=== PATIENT | female | born 1985 | race Caucasian/White ===

== ENCOUNTER 2017-08-18 14:56 | Observation (INO) ==
[2017-08-18] MEDS ORDERED: PANTOPRAZOLE 40 MG VIAL IV STA (16:53)
[2017-08-18] MEDS ORDERED: DICYCLOMINE 20 MG/2 ML AMP IM ONE (16:53)
[2017-08-18] MEDS ORDERED: ONDANSETRON 4 MG/2 ML VIAL IV STA ×2 (16:53→17:32)
[2017-08-18] MEDS ORDERED: SODIUM CHLORIDE 0.9% 1,000 ML IV STA (16:53)
[2017-08-18] MEDS ORDERED: metroNIDAZOLE 500 MG TABLET PO STA (16:53)
[2017-08-18 17:28] LABS: Basophils % 0.4 % (0.0-0.8); Eosinophils # 0.1 10*3/uL (0.0-0.87); Eosinophils % 0.5 % (0.00-10.9); Hemoglobin 15.7 GM/DL (12.0-16.0); Immature Granulocytes % 0.6 %; Immature Granulocytes Absolute 0.06 #; Lymphocytes # 1.8 10*3/uL (1.4-4.0); Lymphocytes % 17.2 % (21.3-54.2); Mean Corpuscular HGB Conc 34.9 GM/DL (32-36); Mean Corpuscular Hemoglobin 31 PG (27-34); Mean Corpuscular Volume 88.4 FL (87-102); Mean Platelet Volume 10.6 FL (9.6-12.0); Monocytes # 0.6 10*3/uL (0.11-0.8); Monocytes % 6.1 % (1.7-12.7); Neutrophils # 7.9 10*3/uL (1.4-7.4); Neutrophils % 75.2 % (38.7-73.9); Platelet Count 272 T/CUMM (130-400); Red Blood Count 5.09 MC/CUMM (3.8-5.5); Red Cell Distribution Width 12.2 % (9.3-17.3); White Blood Count 10.5 T/CUMM (4-12)
[2017-08-18 17:58] LABS: Albumin 3.7 G/DL (3.4-5.0); Bilirubin,Total 0.9 MG/DL (0.2-1.0); Calcium 8.8 MG/DL (8.5-10.1); Osmolality,Calculated 281.3 MOS/KG (273-304); Potassium 3.2 MMOL/L (3.5-5.1)
[2017-08-18 20:24] LABS: Apearance,Urine Slightly Hazy (Clear); Bilirubin,Urine Negative (Negative); Blood, Urine Negative (Negative); Glucose,Urine (UA) Negative (Negative); Ketones,Urine Negative (Negative); Mucus,Urine Occasional /LPF (Occasional); Nitrite,Urine Negative (Negative); Protein,Urine Negative; RBC,Urine 3 /HPF (0-4); Squamous Epithelial Cell,Urine Few /HPF (0-10); Urine Color Yellow (Yellow); Urine Specific Gravity 1.057 (1.001-1.035); Urine Urobilinogen < 2.0 EU/DL (0.2-1.0); WBC,Urine 10 /HPF (0-6)
[2017-08-19] MEDS ORDERED: ACETAMINOPHEN 325 MG TABLET PO PRN (01:07)
[2017-08-19] MEDS ORDERED: PROMETHAZINE 25 MG TABLET PO PRN (01:07)
[2017-08-19] MEDS ORDERED: ONDANSETRON 4 MG/2 ML VIAL IV PRN (01:07)
[2017-08-19] MEDS ORDERED: MORPHINE 4 MG/1 ML VIAL IV PRN (01:07)
[2017-08-19] MEDS ORDERED: PREGABALIN 75 MG CAPSULE PO SCH (01:07)
[2017-08-19] MEDS: PANTOPRAZOLE 40 MG VIAL IV SCH ×3 (02:00→20:05)
[2017-08-19] MEDS: metroNIDAZOLE INJ 500 MG in PREMIX 1 EACH IV SCH ×3 (02:15→17:31)
[2017-08-19] MEDS: POTASSIUM CHLORIDE INJ 40 MEQ in SODIUM CHLORIDE 0.45% 1,000 ML IV SCH ×3 (02:20→21:48)
[2017-08-19] MEDS: CIPROFLOXACIN INJ 400 MG in PREMIX 1 EACH IV SCH ×2 (04:40→17:32)
[2017-08-19] MEDS: PREGABALIN 75 MG CAPSULE PO SCH ×2 (05:05→20:05)
[2017-08-19 07:18] LABS: Basophils % 0.6 % (0.0-0.8); Eosinophils # 0.1 10*3/uL (0.0-0.87); Eosinophils % 0.9 % (0.00-10.9); Hematocrit 36.4 VOL% (35.7-47.0); Immature Granulocytes % 0.3 %; Immature Granulocytes Absolute 0.02 #; Lymphocytes # 1.9 10*3/uL (1.4-4.0); Lymphocytes % 29.1 % (21.3-54.2); Mean Corpuscular HGB Conc 35.7 GM/DL (32-36); Mean Corpuscular Hemoglobin 31 PG (27-34); Mean Corpuscular Volume 86.1 FL (87-102); Monocytes # 0.5 10*3/uL (0.11-0.8); Monocytes % 8.2 % (1.7-12.7); Neutrophils # 3.9 10*3/uL (1.4-7.4); Neutrophils % 60.9 % (38.7-73.9); Platelet Count 254 T/CUMM (130-400); Red Blood Count 4.23 MC/CUMM (3.8-5.5); Red Cell Distribution Width 12.2 % (9.3-17.3); White Blood Count 6.4 T/CUMM (4-12)
[2017-08-19 08:08] LABS: Alanine Aminotransferase 20 U/L (13-56); Albumin 3.1 G/DL (3.4-5.0); Alkaline Phosphatase 72 U/L (45-117); Aspartate Amino Transferase 19 U/L (0-37); Bilirubin,Total < 0.39 MG/DL (0.2-1.0); Blood Urea Nitrogen 11 MG/DL (7-18); Calcium 8.3 MG/DL (8.5-10.1); Glucose 91 MG/DL (74-106); Potassium 3.3 MMOL/L (3.5-5.1); Sodium 143 MMOL/L (136-145); Thyroid Stimulating Hormone 0.008 uIU/ml (0.358-3.74); Total Protein 6.1 G/DL (6.4-8.3)
[2017-08-19] MEDS ORDERED: PROMETHAZINE 25 MG/1 ML VIAL IM PRN (08:15)
[2017-08-19] MEDS: LEVOTHYROXINE 175 MCG TABLET PO SCH (08:50)
[2017-08-19] MEDS: SUCRALFATE 1 GM/10 ML UDCUP PO SCH ×4 (08:57→20:05)
[2017-08-19] MEDS: POTASSIUM CHLORIDE 20 MEQ TABLET PO SCH ×3 (08:57→17:31)
[2017-08-19] MEDS: traMADol 50 MG TABLET PO PRN (09:14)
[2017-08-19] MEDS: TOPIRAMATE 25 MG TABLET PO SCH ×2 (11:55→20:05)
[2017-08-20] MEDS: metroNIDAZOLE INJ 500 MG in PREMIX 1 EACH IV SCH ×2 (00:40→08:40)
[2017-08-20] MEDS: traMADol 50 MG TABLET PO PRN (00:43)
[2017-08-20 04:01] LABS: Basophils # 0.1 10*3/uL (0.0-0.2); Basophils % 0.7 % (0.0-0.8); Eosinophils # 0.2 10*3/uL (0.0-0.87); Eosinophils % 2.3 % (0.00-10.9); Hematocrit 37.6 VOL% (35.7-47.0); Hemoglobin 12.9 GM/DL (12.0-16.0); Immature Granulocytes % 0.3 %; Immature Granulocytes Absolute 0.02 #; Lymphocytes # 3.5 10*3/uL (1.4-4.0); Lymphocytes % 48.2 % (21.3-54.2); Mean Corpuscular HGB Conc 34.3 GM/DL (32-36); Mean Corpuscular Hemoglobin 31 PG (27-34); Mean Corpuscular Volume 89.7 FL (87-102); Mean Platelet Volume 11.2 FL (9.6-12.0); Monocytes # 0.7 10*3/uL (0.11-0.8); Monocytes % 9.1 % (1.7-12.7); Neutrophils # 2.9 10*3/uL (1.4-7.4); Neutrophils % 39.4 % (38.7-73.9); Platelet Count 260 T/CUMM (130-400); Red Blood Count 4.19 MC/CUMM (3.8-5.5); Red Cell Distribution Width 12.2 % (9.3-17.3); White Blood Count 7.2 T/CUMM (4-12)
[2017-08-20] MEDS: CIPROFLOXACIN INJ 400 MG in PREMIX 1 EACH IV SCH (04:02)
[2017-08-20] MEDS: POTASSIUM CHLORIDE INJ 40 MEQ in SODIUM CHLORIDE 0.45% 1,000 ML IV SCH (04:05)
[2017-08-20 04:23] LABS: Calcium 9.2 MG/DL (8.5-10.1); Osmolality,Calculated 283.8 MOS/KG (273-304); Potassium 4.5 MMOL/L (3.5-5.1)
[2017-08-20] MEDS: LEVOTHYROXINE 175 MCG TABLET PO SCH (06:21)
[2017-08-20 07:08] VITALS: BP 124/73
[2017-08-20] MEDS: TOPIRAMATE 25 MG TABLET PO SCH (08:41)
[2017-08-20] MEDS: SUCRALFATE 1 GM/10 ML UDCUP PO SCH (08:41)
[2017-08-20] MEDS: PREGABALIN 75 MG CAPSULE PO SCH (08:41)
[2017-08-20] MEDS: PANTOPRAZOLE 40 MG VIAL IV SCH (08:41)
== END 2017-08-20 10:50 | disposition home or self-care (01) ==
LOC: N.EDINP 14:56 → N.ED 14:56 → SUATTDRO 22:36 → N.3E 23:14
PROVIDERS: ADMIT Family Medicine; ATTEND Internal Medicine